=== PATIENT | female | born 1975 | race African-American/Black ===

== ENCOUNTER 2021-10-27 10:48 | Day surgery (SDC) | payer OTHER ==
[2021-10-27] MEDS ORDERED: SCOPOLAMINE HYDROBROMIDE PATCH TD ONE ×2 (11:03→11:20)
[2021-10-27] MEDS ORDERED: Ringers Lactate 1,000 ML IV ONE ×2 (11:03→11:59)
[2021-10-27] MEDS ORDERED: CEFAZOLIN/SWI 2gm 2 GM/20 ML SYR ONE (11:04)
[2021-10-27 11:08] LABS: Urine Appearance CLEAR (Clear); Urine Bilirubin NEGATIVE (Negative); Urine Blood NEGATIVE (Negative); Urine Color YELLOW (Yellow); Urine Glucose NEGATIVE (Negative); Urine Protein NEGATIVE (Negative); Urine Specific Gravity 1.015 (1.005-1.030); Urine Urobilinogen 0.2 mg/dL (0.2-1.0)
[2021-10-27 11:09] LABS: Specific Gravity 1.015 (1.005-1.030); Urine Microscopic Reflex NO UMIC
[2021-10-27] MEDS ORDERED: SUCCINYLCHOLINE 20 MG/ML (10 ML) IV ONE (11:16)
[2021-10-27 11:17] LABS: Absolute Lymphocytes (CBC) 1.8 K/uL (0.7-4.9); Hematocrit 40.1 % (36.0-45.0); Lymphocytes % 32.8 % (15.3-44.8); MPV 7.6 fL (7.6-11.3); RBC Red Blood Cell Count 5.03 M/uL (3.86-4.86)
[2021-10-27] MEDS ORDERED: ACETAMINOPHEN 500 MG TAB ONE (11:20)
[2021-10-27] MEDS ORDERED: CELECOXIB 100 MG CAPSULE ONE (11:21)
[2021-10-27] MEDS ORDERED: CELECOXIB 100 MG CAPSULE PO ONE (11:25)
[2021-10-27] MEDS ORDERED: ACETAMINOPHEN 500 MG TAB PO ONE (11:25)
[2021-10-27] MEDS ORDERED: ROCURONIUM 50 MG/5 ML VIAL IV ONE ×2 (11:36→13:43)
[2021-10-27] MEDS ORDERED: MIDAZOLAM HCL 2 MG/2 ML INJ ONE (11:36)
[2021-10-27] MEDS ORDERED: FENTANYL CITR 250 MCG/5 ML ONE (11:36)
[2021-10-27] MEDS ORDERED: propofoL 200 MG/20 ML VIAL IV ONE (11:36)
[2021-10-27] MEDS ORDERED: NA CHLORIDE 0.9% 2,000 ML ONE (11:59)
[2021-10-27] MEDS ORDERED: BUPIVACAINE 0.25% PF 10 ML VIAL ONE (11:59)
[2021-10-27] MEDS ORDERED: VASOPRESSIN 20 UNIT/ML VIAL ONE (13:48)
[2021-10-27] MEDS ORDERED: NA CHLORIDE 0.9% 0 ML IV ONE (13:49)
[2021-10-27] MEDS ORDERED: KETOROLAC 30 MG/ML INJ ONE (14:33)
[2021-10-27] MEDS ORDERED: dexAMETHasone 10 MG/ML VIAL ONE (14:33)
[2021-10-27] MEDS ORDERED: ONDANSETRON 4 MG/2 ML VIAL ONE (14:34)
[2021-10-27] MEDS ORDERED: GLYCOPYRROLATE 0.2 MG/ML SYR ONE (14:35)
[2021-10-27] MEDS ORDERED: NEOSTIGMINE 1 MG/ML -5 ML ONE (14:36)
[2021-10-27] MEDS ORDERED: METHYLENE BLUE 0.5% 10 ML AMP ONE (14:57)
[2021-10-27] MEDS ORDERED: MEPERIDINE HCL 25 MG/ML SYR IM PRN (15:10)
[2021-10-27] MEDS ORDERED: PROMETHAZINE INJ 25 MG/ML AMP IV PRN (15:10)
[2021-10-27] MEDS ORDERED: HYDROCODONE/APAP 5/325 MG TAB PO PRN (15:10)
[2021-10-27] MEDS ORDERED: IBUPROFEN 200 MG TAB PO PRN (15:10)
--- NOTE | 2021-10-27 15:18 | P.BOP ---
Preoperative diagnosis: AUB-L, pelvic pain, dysmenorrhea Postoperative diagnosis: same, stage 4 enodmetriosis Primary procedure: Hysteroscopy polypectomy x7 d/c,laparoscopy L ovarian cystectomy Secondary procedure: endometrioma removal, chromotubation, L salpingo ovariolysis Berry Picker: Berta Ferreira Estimated blood loss: 50 Specimen: left ovarian cyst wall, polyps, myoma, EMC Findings: polyps x9, left endometrioma, Anesthesia: General Complications: None Transferred to: Recovery Room Condition: Good
[2021-10-27] MEDS ORDERED: MEPERIDINE HCL 25 MG/ML SYR IV ONE ×2 (15:24→15:46)
[2021-10-27] MEDS ORDERED: MEPERIDINE HCL 25 MG/ML SYR ONE (15:25)
[2021-10-27 16:12] VITALS: TEMP 97.3
[2021-10-27] MEDS ORDERED: HYDROCODONE/APAP 5/325 MG TAB ONE (16:35)
[2021-10-27 16:51] VITALS: BP 122/52; O2SAT 98
[2021-10-28] MEDS ORDERED: FERROUS SULFATE 325 MG TAB PO SCH (09:00)
[2021-10-28] MEDS ORDERED: PRENATAL VIT CALC76 PO SCH (09:00)
[2021-10-28] MEDS ORDERED: FOLIC PO SCH (09:00)
[2021-10-28] MEDS ORDERED: IRON PO SCH (09:00)
== END 2021-10-27 16:48 | disposition home or self-care (01) ==
LOC: OR 10:48
PROVIDERS: ATTEND Obstetrics & Gynecology
PROC: 0UJD8ZZ Inspection of Uterus and Cervix, Via Natural or Artificial Opening Endoscopic (ICD-10-PCS; 2021-10-27)
PROC: 0UB14ZZ Excision of Left Ovary, Percutaneous Endoscopic Approach (ICD-10-PCS; 2021-10-27)
PROC: 0UB94ZZ Excision of Uterus, Percutaneous Endoscopic Approach (ICD-10-PCS; 2021-10-27)
PROC: 0UB97ZX Excision of Uterus, Via Natural or Artificial Opening, Diagnostic (ICD-10-PCS; principal; 2021-10-27 09:30)
PROC: 0UDB7ZX Extraction of Endometrium, Via Natural or Artificial Opening, Diagnostic (ICD-10-PCS; 2021-10-27 09:30)
DX: N84.0 Polyp of corpus uteri (principal); N71.9 Inflammatory disease of uterus, unspecified; N94.6 Dysmenorrhea, unspecified; R10.2 Pelvic and perineal pain; Z20.822 Contact with and (suspected) exposure to COVID-19
CPT/HCPCS: 58558; 58662; 58545; 85025; 36415; 86900; 88108; 86850; 81025; 86901; 88305 ×2; 81003; U0003; J2704; J0330; J2250; J3010; J1100; J2175 ×3; J2710; J0690; J7120 ×2; J7030; J2405